=== PATIENT | female | born 1955 | race Caucasian/White ===

== ENCOUNTER 2019-03-14 20:05 | Emergency (ER) | payer MEDICARE ==
[2019-03-14] MEDS ORDERED: GI Cocktail Oral Solution 30 ML PO ONE (20:17)
--- NOTE | 2019-03-14 20:25 | EDM.PDOC ---
ED [facility] GENERAL MEDICAL PROBLEM - General Chief Complaint: General Stated Complaint: PAIN IN ABDOMEN TO BACK Time Seen by Provider: 03/14/19 20:10 Source of Information: Reports: Patient History Limitations: Reports: No Limitations - History of Present Illness INITIAL COMMENTS - FREE TEXT/NARRATIVE: Patient comes into the emergency department complaining of sudden onset of mid epigastric discomfort. Patient states that she was sitting at home watching TV when the sharp shooting pain sensation in the epigastrium. She states that it radiated to her back area. She states that she does have history of gastric reflux and anxiety and she states that this does not feel like that. She did become diaphoretic and nauseated with this. She denies history of any cardiovascular disease. She states that she's been relatively healthy and has had no recent illness or injuries. Onset: Sudden Location: Reports: Abdomen Quality: Reports: Sharp, Stabbing Improves with: Reports: None Worsens with: Reports: None Associated Symptoms: Reports: No Other Symptoms - Related Data Allergies Allergy/AdvReac Type Severity Reaction Status Date / Time amoxicillin AdvReac Intermediate Nausea Verified 03/14/19 21:11 hydrocodone AdvReac Intermediate Nausea and Verified 03/14/19 21:11 Vomiting Dust Mites Allergy Intermediate Itching Uncoded 03/14/19 21:11 ED ROS GENERAL - Review of Systems Review Of Systems: Comprehensive ROS is negative, except as noted in HPI. Constitutional: Reports: No Symptoms HEENT: Reports: No Symptoms Respiratory: Reports: No Symptoms Cardiovascular: Reports: No Symptoms Endocrine: Reports: No Symptoms GI/Abdominal: Reports: No Symptoms : Reports: No Symptoms Musculoskeletal: Reports: No Symptoms Skin: Reports: No Symptoms Neurological: Reports: No Symptoms ED EXAM, GENERAL - Physical Exam Exam: See Below Exam Limited By: No Limitations General Appearance: Alert, WD/WN, No Apparent Distress Eye Exam: Bilateral Eye: EOMI, PERRL Nose: Normal Inspection, Normal Mucosa, No Blood Throat/Mouth: Normal Inspection, Normal Lips, Normal Teeth Head: Atraumatic, Normocephalic Neck: Normal Inspection, Supple, Non-Tender Respiratory/Chest: No Respiratory Distress, Lungs Clear, Normal Breath Sounds, No Accessory Muscle Use, Chest Non-Tender Cardiovascular: Normal Peripheral Pulses, Regular Rate, Rhythm, No Edema GI/Abdominal: Normal Bowel Sounds, Soft, Non-Tender, No Distention, No Abnormal Bruit Back Exam: Normal Inspection, Full Range of Motion Extremities: Normal Inspection, Normal Range of Motion, Non-Tender, No Pedal Edema, Normal Capillary Refill Neurological: Alert, Oriented, CN II-XII Intact, Normal Gait Psychiatric: Normal Affect, Normal Mood Skin Exam: Warm, Dry, Intact, Normal Color Course - Orders/Labs/Meds Orders: Active Orders 24 hr Category Date Time Status EKG Documentation Completion [RC] STAT Care 03/14/19 20:16 Active Chest 1V Frontal [CR] Stat Exams 03/14/19 20:17 Ordered COMPREHENSIVE METABOLIC PN,CMP [CHEM] Stat Lab 03/14/19 20:33 Received PRO B-TYPE NATRIUR PEPT,BNPPRO [CHEM] Stat Lab 03/14/19 20:33 Received Labs: Laboratory Tests 03/14/19 Range/Units 20:33 WBC 15.7 H (4.0-10.0) x10^3/uL RBC 4.93 (4.00-5.50) x10^6/uL Hgb 14.0 (12.0-16.0) g/dL Hct 41.8 (33.0-47.0) % MCV 84.8 (78.0-93.0) fL MCH 28.4 (26.0-32.0) pg MCHC 33.5 (32.0-36.0) g/dL RDW Coeff of Georgie 13.8 (10.0-15.0) % Plt Count 433 H (130-400) x10^3/uL Neut % (Auto) 50.3 (50.0-80.0) % Lymph % (Auto) 42.3 (25.0-50.0) % Baker % (Auto) 5.7 (2.0-11.0) % Eos % (Auto) 1.4 (0.0-4.0) % Baso % (Auto) 0.3 (0.2-1.2) % Meds: Medications Discontinued Medications Generic Name Dose Route Start Last Admin Trade Name Freq PRN Reason Stop Dose Admin Al Hydroxide/Mg Hydroxide 30 ml 03/14/19 20:17 Gi Cocktail PO 03/14/19 20:18 ONETIME ONE Departure - Departure Time of Disposition: 21:30 Disposition: Home, Self-Care 01 Condition: Good Clinical Impression: GERD (gastroesophageal reflux disease) Qualifiers: Esophagitis presence: without esophagitis Qualified Code(s): K21.9 - Gastro- esophageal reflux disease without esophagitis - Discharge Information *PRESCRIPTION DRUG MONITORING PROGRAM REVIEWED*: Not Applicable *COPY OF PRESCRIPTION DRUG MONITORING REPORT IN PATIENT SUKUMAR: Not Applicable Instructions: Food Choices for Gastroesophageal Reflux Disease, Adult, Gastroesophageal Reflux Disease, Adult, [id number] Forms: ED Department Discharge Additional Instructions: 1. rest 2. increase water intake 3. avoid foods that can increase stomach acid- information provided in package 4. Activity and diet as tolerated 5. Can take over the counter medications to help with reflux illness 6. Follow up with your PCP if symptoms continue of return if symptoms worsen 7. Call with any questions or concerns Sepsis Event Note - Focused Exam Date Exam was Performed: 03/14/19 Time Exam was Performed: 21:12 - My Orders Last 24 Hours: My Active Orders 03/14/19 20:16 EKG Documentation Completion [RC] STAT 03/14/19 20:17 Chest 1V Frontal [CR] Stat 03/14/19 20:33 COMPREHENSIVE METABOLIC PN,CMP [CHEM] Stat PRO B-TYPE NATRIUR PEPT,BNPPRO [CHEM] Stat - Assessment/Plan Last 24 Hours: My Active Orders 03/14/19 20:16 EKG Documentation Completion [RC] STAT 03/14/19 20:17 Chest 1V Frontal [CR] Stat 03/14/19 20:33 COMPREHENSIVE METABOLIC PN,CMP [CHEM] Stat PRO B-TYPE NATRIUR PEPT,BNPPRO [CHEM] Stat Assessment:: 1. epigastric pain 2. Gastric reflux Plan: 1. Labs completed in the ER. Results reviewed with patient 2. EKG completed in ER. Results reviewed with patient 3. Chest x-ray completed in ER. Results reviewed with patient 4. GI cocktail given in ER. Relief noted within 5 minutes. Pain completely gone within 10. 5. Education provided the patient regarding GI reflux, [id number] medication, activity, diet, and follow up care provided. 6. All questions and concerns addressed prior to patients discharge.
[2019-03-14 21:13] LABS: CHLORIDE,CL 98 mmol/L (98-107); SODIUM,NA 140 mmol/L (136-145)
--- NOTE | 2019-03-16 08:19 | CR ---
[id number] RAD/RAD Chest PA or AP 1V EXAM: RAD Chest PA or AP 1V INDICATION: CHEST PAIN FOR ONE HOUR. COMPARISON: None. DISCUSSION: Cardiomediastinal silhouette is normal in size and contour. No infiltrate, effusion, pneumothorax, or edema. IMPRESSION: No acute findings. Oscar Davis MD 03/16/19 0818 Thank you for allowing us to participate in the care of your patient.
== END 2019-03-14 21:31 | disposition home or self-care (01) ==
LOC: VM.ED 20:05
DX: K21.9 Gastro-esophageal reflux disease without esophagitis (principal); Z88.1 Allergy status to other antibiotic agents; Z88.5 Allergy status to narcotic agent; Z91.048 Other nonmedicinal substance allergy status
CPT/HCPCS: 36415; 71045; 80053; 83880; 85025; 93005; 99283; 99284; A9270

== ENCOUNTER 2021-03-27 13:59 | Emergency (ER) | payer MEDICARE ==
[2021-03-27 14:57] LABS: CHLORIDE,CL 98 mmol/L (98-107); SODIUM,NA 139 mmol/L (136-145)
[2021-03-27 15:00] LABS: ANION GAP 13.5 mmol/L (5-15)
[2021-03-27] MEDS ORDERED: Take Home: Ondansetron 4 MG Tab.DIS, 5 Tab Pack PO ONE (16:21)
[2021-03-27] MEDS ORDERED: Take Home: Acetaminophen/oxyCODONE 325-5 MG, 5 Tab Pack PO ONE (16:21)
== END 2021-03-27 16:35 | disposition home or self-care (01) ==
LOC: VM.ED 13:59
DX: R10.32 Left lower quadrant pain (principal); E78.00 Pure hypercholesterolemia, unspecified; I10 Essential (primary) hypertension; K21.9 Gastro-esophageal reflux disease without esophagitis; E11.9 Type 2 diabetes mellitus without complications; E66.9 Obesity, unspecified; Z68.32 Body mass index [BMI] 32.0-32.9, adult; Z88.0 Allergy status to penicillin; Z88.5 Allergy status to narcotic agent; Z91.048 Other nonmedicinal substance allergy status; Z79.4 Long term (current) use of insulin; Z79.899 Other long term (current) drug therapy
CPT/HCPCS: 36415; 74176; 80053; 81000; 81001; 83605; 83690; 85025; 86140; 99284-25; A9270-GY; Q0162